=== PATIENT | male | born 1960 | race Caucasian/White ===

== ENCOUNTER 2018-02-09 17:16 | Observation (INO) ==
[2018-02-09] MEDS ORDERED: Ipratropium/Albuterol Neb 3 ML IH ONE ×2 (17:47→18:19)
--- NOTE | 2018-02-09 17:55 | Emergency Department Note ---
Disposition Clinical Impression: Hypokalemia Pneumonia Qualifiers: Pneumonia type: due to unspecified organism Laterality: bilateral Lung location : lower lobe of lung Qualified Code(s): J18.1 - Lobar pneumonia, unspecified organism Disposition: Home, Self-Care Condition: Good URI/Sore Throat HPI - General Chief Complaint: ED Upper Respiratory Infection Stated Complaint: Not feeling well, fever, cough Time Seen by Provider: 02/09/18 17:51 Source: patient, family Mode of arrival: private vehicle Limitations: no limitations, altered mental status Nursing Notes Reviewed: Yes Vital Signs Reviewed: Yes - History of Present Illness HPI Narrative: Patient presents to the ED on referral from urgent care for shortness of breath and wheezing. Chest x-ray at urgent care showed a right-sided pneumonia her nurse practitioner who evaluated him. He received 1 DuoNeb and, 8 mg of Decadron and a gram of Rocephin and continued to be short of breath and wheezing. They state his room air oxygen saturation is 93% and improved to 94% on 2 L he was still tachypnea. Patient was afebrile at urgent care. He reported that he had not been eating well and had increasing shortness of breath for a week. Patient also had a witnessed fall in the parking lot at urgent care on his way and due to a chronic unsteady gait and has an abrasion on his right cheek. On arrival here patient's oxygen saturations 91% on room air. He was placed on 2 L of oxygen. He states he has had a productive cough of yellow sputum. Denies any sneezing, sore throat, nasal congestion or rhinorrhea. He reports a fever of 101 two days ago. He took Vicks DayQuil today. Denies any chest pain, nausea, vomiting or constipation. No lower extremity edema or orthopnea.He has had 2 episodes of diarrhea today. He has a history of medical brain injury in 19 ED to stroke in 2016. His only medications are a statin and aspirin. Recent audibly wheezing on arrival. - Related Data Home Medications Medication Instructions Recorded Confirmed Atorvastatin [Lipitor] 40 mg PO DAILY 02/09/18 02/09/18 Previous Rx's Medication Instructions Recorded Aspirin 81 mg PO DAILY tab.chew 07/04/16 Allergies Allergy/AdvReac Type Severity Reaction Status Date / Time No Known Allergies Allergy Verified 04/14/18 17:17 Constitutional: Reports: fever. Denies: chills, weakness, weight change Eyes: Denies: eye pain, eye discharge, vision change ENT ED: Denies: ear pain, throat pain, dental pain, hearing loss, epistaxis, congestion, dysphagia Cardiovascular: Denies: chest pain, palpitations, dyspnea on exertion, edema, syncope Respiratory: Reports: cough, dyspnea, wheezes, sputum production. Denies: hemoptysis, stridor Gastrointestinal: Denies: abdominal pain, nausea, vomiting, diarrhea, constipation, hematemesis, melena, hematochezia Genitourinary: Denies: urgency, dysuria, frequency, hematuria Musculoskeletal: Denies: back pain, neck pain, arthralgia, myalgia Integumentary: Denies: rash, abrasion, lesions Neurological: Denies: headache, weakness, numbness, paresthesias, confusion, abnormal gait, vertigo Psychiatric: Denies: anxiety, depression, suicidal thoughts, homicidal thoughts , auditory hallucinations, visual hallucinations Endocrine: Denies: fatigue Hematological/Lymphatic: Denies: easy bleeding, easy bruising Allergic/Immunologic: Denies: facial swelling, urticaria URI PMH - Past Medical History Medical history: Reports: CVA, hyperlipidemia Surgical history: Reports: other Psychiatric history: Reports: other - Social History Smoking Status: Never smoker Alcohol use: Reports: none Drug use: Reports: none Physical Exam - General Limitations: no limitations General appearance: alert, in no apparent distress - Head Head exam: atraumatic, normocephalic, normal inspection - Eye Eye exam: Present: normal appearance, PERRL, EOMI - ENT ENT exam: normal exam, normal oropharynx, mucous membranes moist, TM's normal bilaterally, normal external ear exam - Neck Neck exam: Present: normal inspection, full ROM, trachea midline. Absent: lymphadenopathy - Chest Chest inspection: Present: normal inspection, symmetric chest wall rise - Respiratory Respiratory exam: Absent: respiratory distress, accessory muscle use - Expanded Respiratory Exam Location: wheezes: Left, Right, Upper, Lower (insp/exp) - Cardiovascular Cardiovascular exam: Present: regular rate, normal rhythm, normal heart sounds - Abdominal Exam Abdominal exam: Present: soft, Non-Tender. Absent: tenderness, distention, guarding, rebound, rigidity - Extremities Exam Extremities exam: Present: normal inspection, full ROM. Absent: tenderness, pedal edema - Back Exam Back exam: Present: normal inspection, full ROM. Absent: tenderness - Neurological Exam Neurological exam: Present: alert, oriented X3 - Psychiatric Psychiatric exam: Present: normal affect, normal mood - Skin Skin exam: Present: warm, dry, intact, normal color Course Course Narrative: Patient presents to the ED with 1 week of worsening shortness of breath, decreased appetite, fever and wheezing. He has wheezing on arrival. Chest x- ray from outside facility is not available for review so will repeat here in addition to lab work. We will give an additional DuoNeb and reassessed. Concern is for bronchitis versus pneumonia. Low suspicion for cardiac pathology. - Reevaluation(s) Reevaluation #1: Single-view chest x-ray showed poor lung volumes but no definite infiltrate. Will obtain 2 view for further evaluation given report of right-sided pneumonia on outside chest x-ray which is not available for review. CBC shows a low white count, possibly indicating viral infection. BMP is notable for a potassium of 2.9. Lactic acid is normal at 1.6. Awaiting repeat chest x-ray but there is still high suspicion for pneumonia. Patient's wheezing has improved but is present and oxygen saturations remain in the low 90s on O2. Time: 18:55 Reevaluation #2: Two-view chest x-ray shows possible bibasilar pneumonia. Patient has been started on antibiotics. He is also being given potassium supplements. Discussed with patient and family the need for admission and they are in agreement. I spoken with hospice on-call, Dr. Aguayo who has agreed to admit the patient. Vital Signs Temperature 99.6 F 02/09/18 17:18 Pulse Rate 78 02/09/18 17:18 Respiratory Rate 20 02/09/18 17:18 Blood Pressure 161/82 02/09/18 17:18 O2 Sat by Pulse Oximetry 91 02/09/18 17:18 Temperature 98.5 F 02/10/18 03:56 Pulse Rate 72 02/10/18 03:56 Respiratory Rate 18 02/10/18 05:58 Blood Pressure 111/70 02/10/18 03:56 O2 Sat by Pulse Oximetry 90 02/10/18 05:58 Oxygen Delivery Oxygen Delivery Nasal Cannula Upper Respiratory Infection - Differential Diagnosis Differential Diagnosis: Likely: upper respiratory infection, other viral infection, bronchitis, pneumonia - Medical Records Medical records reviewed: Yes I reviewed the patient's medical records. - Lab Data Lab results reviewed: Yes I reviewed the patient's lab results. Result diagrams: 02/09/18 17:55 02/09/18 17:55 Lab Results 02/09/18 02/09/18 02/09/18 Range/Units 17:55 17:55 17:55 WBC 2.7 L (4.3-11.1) K/mcL RBC 4.95 (4.19-5.50) M/mcL Hgb 14.7 (12.9-16.9) g/dL Hct 42.5 (37.5-50.1) % MCV 85.9 (83.0-100.0) fL MCH 29.7 (28.0-33.3) pg MCHC 34.6 (31.6-35.5) g/dL RDW 12.3 (11.5-14.5) % Plt Count 118 L (140-400) K/mcL MPV 10.5 (9.4-12.4) fL Immature Gran % 0.0 (0-4) % Seg Neutrophils % 72.2 % Lymphocytes % 16.1 % Monocytes % 10.2 % Eosinophils % 1.1 % Basophils % 0.4 % Neutrophils # 2.0 (1.6-8.9) K/mcL Lymphocytes # 0.4 L (0.6-4.6) K/mcL Monocytes # 0.3 (0.0-1.3) K/mcL Eosinophils # 0.0 (0.0-0.6) K/mcL Basophils # 0.0 (0.0-0.2) K/mcL Sodium 137 (136-145) mEq/L Potassium 2.9 L (3.5-5.1) mEq/L Chloride 104 (98-107) mEq/L Carbon Dioxide 27 (23-29) mEq/L BUN 19 (6-20) mg/dL Creatinine 1.06 (0.70-1.30) mg/dL Est GFR ( Amer) > 60 (> 60) Est GFR (Non-Af Amer) > 60 (> 60) BUN/Creatinine Ratio 18 (6-26) Glucose 143 H (70-105) mg/dL Calculated Osmolality 289 (280-300) Lactic Acid 1.6 (0.5-2.2) mmol/L Calcium 8.2 L (8.6-10.3) mg/dL Phosphorus (2.7-4.5) mg/dL Magnesium (1.6-2.6) mg/dL 02/09/18 Range/Units 17:55 WBC (4.3-11.1) K/mcL RBC (4.19-5.50) M/mcL Hgb (12.9-16.9) g/dL Hct (37.5-50.1) % MCV (83.0-100.0) fL MCH (28.0-33.3) pg MCHC (31.6-35.5) g/dL RDW (11.5-14.5) % Plt Count (140-400) K/mcL MPV (9.4-12.4) fL Immature Gran % (0-4) % Seg Neutrophils % % Lymphocytes % % Monocytes % % Eosinophils % % Basophils % % Neutrophils # (1.6-8.9) K/mcL Lymphocytes # (0.6-4.6) K/mcL Monocytes # (0.0-1.3) K/mcL Eosinophils # (0.0-0.6) K/mcL Basophils # (0.0-0.2) K/mcL Sodium (136-145) mEq/L Potassium (3.5-5.1) mEq/L Chloride (98-107) mEq/L Carbon Dioxide (23-29) mEq/L BUN (6-20) mg/dL Creatinine (0.70-1.30) mg/dL Est GFR ( Amer) (> 60) Est GFR (Non-Af Amer) (> 60) BUN/Creatinine Ratio (6-26) Glucose (70-105) mg/dL Calculated Osmolality (280-300) Lactic Acid (0.5-2.2) mmol/L Calcium (8.6-10.3) mg/dL Phosphorus 2.3 L (2.7-4.5) mg/dL Magnesium 2.0 (1.6-2.6) mg/dL - Radiology Data Radiology results reviewed: Yes I reviewed the patient's radiology results. ITS Impressions Chest X-Ray 02/09/18 17:41 IMPRESSION: Limited examination secondary to low lung volumes. Repeat PA and lateral chest is recommended for better evaluation. No definite acute abnormality detected, but the retro-diaphragmatic regions are not well seen. D/ / Daniel Jaeger MD / Daniel Jaeger MD Interpreting Provider: Daniel Jaeger MD Chest X-Ray 02/09/18 18:44 IMPRESSION: 1. Hypoventilatory chest with consolidation identified within the posterior lung bases on the lateral view concerning for pneumonia in the appropriate clinical setting. D/ / Clark Burns MD / Clark Burns MD Interpreting Provider: Clark Burns MD
[2018-02-09 18:04] LABS: Basophils % 0.4 %; Eosinophils % 1.1 %; Hematocrit 42.5 % (37.5-50.1); Hemoglobin 14.7 g/dL (12.9-16.9); Lymphocytes # 0.4 K/mcL (0.6-4.6); Lymphocytes % 16.1 %; Mean Corpuscular HGB Conc 34.6 g/dL (31.6-35.5); Mean Corpuscular Hemoglobin 29.7 pg (28.0-33.3); Mean Corpuscular Volume 85.9 fL (83.0-100.0); Mean Platelet Volume 10.5 fL (9.4-12.4); Monocytes # 0.3 K/mcL (0.0-1.3); Monocytes % 10.2 %; Platelet Count 118 K/mcL (140-400); Red Blood Count 4.95 M/mcL (4.19-5.50); Red Cell Distribution Width 12.3 % (11.5-14.5); Segmented Neutrophils % 72.2 %
[2018-02-09 18:23] LABS: BUN/Creatinine Ratio 18 (6-26); Blood Urea Nitrogen 19 mg/dL (6-20); Calcium 8.2 mg/dL (8.6-10.3); Carbon Dioxide 27 mEq/L (23-29); Chloride 104 mEq/L (98-107); Glucose 143 mg/dL (70-105); Osmolality,Calculated 289 (280-300); Potassium 2.9 mEq/L (3.5-5.1); Sodium 137 mEq/L (136-145); eGFR For African Americans > 60 (> 60); eGFR For Non-African Americans > 60 (> 60)
[2018-02-09] MEDS ORDERED: Potassium Chloride Elixir 20 MEQ/15 ML UDC PO ONE (18:43)
[2018-02-09] MEDS ORDERED: Azithromycin 500 MG in D5% in Water 250 ML IVPB ONE (18:43)
[2018-02-09] MEDS ORDERED: 0.9 % Sodium Chloride 1,000 ML IVC ONE (18:49)
[2018-02-09 19:29] LABS: Phosphorous 2.3 mg/dL (2.7-4.5)
[2018-02-09] MEDS ORDERED: Naloxone 0.4 MG/ML INJ IVP PRN (20:10)
[2018-02-09] MEDS: Ipratropium/Albuterol Neb 3 ML IH SCH (21:43)
[2018-02-10] MEDS: Ipratropium/Albuterol Neb 3 ML IH SCH ×6 (02:16→21:53)
[2018-02-10 07:35] LABS: BUN/Creatinine Ratio 15 (6-26); Blood Urea Nitrogen 16 mg/dL (6-20); Calcium 8.1 mg/dL (8.6-10.3); Carbon Dioxide 24 mEq/L (23-29); Chloride 108 mEq/L (98-107); Glucose 233 mg/dL (70-105); Osmolality,Calculated 301 (280-300); Potassium 3.3 mEq/L (3.5-5.1); Sodium 141 mEq/L (136-145); eGFR For African Americans > 60 (> 60); eGFR For Non-African Americans > 60 (> 60)
[2018-02-10 10:25] LABS: Magnesium 1.8 mg/dL (1.6-2.6); Potassium 3.3 mEq/L (3.5-5.1)
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
[2018-02-11] MEDS: Ipratropium/Albuterol Neb 3 ML IH SCH ×3 (01:51→09:53)
[2018-02-11 05:52] VITALS: BP 112/72
[2018-02-11 06:25] LABS: Hematocrit 36.4 % (37.5-50.1); Hemoglobin 12.6 g/dL (12.9-16.9); Mean Corpuscular HGB Conc 34.6 g/dL (31.6-35.5); Mean Corpuscular Hemoglobin 29.9 pg (28.0-33.3); Mean Corpuscular Volume 86.5 fL (83.0-100.0); Mean Platelet Volume 11.4 fL (9.4-12.4); Monocytes # 0.5 K/mcL (0.0-1.3); Platelet Count 113 K/mcL (140-400); Red Blood Count 4.21 M/mcL (4.19-5.50); Red Cell Distribution Width 12.4 % (11.5-14.5)
[2018-02-11 06:52] LABS: Alanine Aminotransferase 44 Units/L (7-52); Albumin/Globulin Ratio 1.3 (1.1-2.2); Alkaline Phosphatase 63 Units/L (34-104); Aspartate Amino Transferase 26 Units/L (13-39); BUN/Creatinine Ratio 13 (6-26); Bilirubin,Total 0.4 mg/dL (0.3-1.0); Blood Urea Nitrogen 12 mg/dL (6-20); Calcium 7.9 mg/dL (8.6-10.3); Carbon Dioxide 27 mEq/L (23-29); Chloride 109 mEq/L (98-107); Globulin 2.3 g/dL (2.4-3.5); Glucose 103 mg/dL (70-105); Osmolality,Calculated 294 (280-300); Sodium 142 mEq/L (136-145); Total Protein 5.3 g/dL (6.4-8.9); eGFR For African Americans > 60 (> 60); eGFR For Non-African Americans > 60 (> 60)
[2018-02-11 07:30] LABS: Lymphocytes # 1.3 K/mcL (0.6-4.6); Neutrophils # 3.2 K/mcL (1.6-8.9); Platelet Estimate Decreased (Normal); Reactive Lymphocytes Present (Not Present)
--- NOTE | 2018-02-11 09:36 | Discharge Summary ---
Date of Encounter: 02/11/18 Time of Encounter: 09:25 - Discharge Diagnosis (1) Pneumonia Priority: Primary Status: Acute Qualifiers: Pneumonia type: due to unspecified organism Laterality: bilateral Lung location: lower lobe of lung Qualified Code(s): J18.1 - Lobar pneumonia, unspecified organism (2) Hypophosphatemia Priority: Secondary Status: Acute (3) Hypokalemia Priority: Secondary Status: Acute (4) Diarrhea Priority: Secondary Status: Acute Qualifiers: Diarrhea type: unspecified type Qualified Code(s): R19.7 - Diarrhea, unspecified Hospital course: Mr. Messina is a 57 year old male who was sent from a local urgent care to the emergency room after he presented there with 3 day history of dyspnea, fever, and cough productive of green and yellow sputum. Reports he has had diarrhea for at least one week with brown watery stools. He was evaluated in emergency room and found to have hypokalemia and leukopenia. He was admitted to [facility] floor for ongoing care needs. Initial orders written by the emergency room physician. I saw him on February 10 and performed a history and physical. He was started on Rocephin and Zithromax with lactobacillus for by basilar infiltrates. WBC normalized to 5.0 by the following day with less left shift seen. He felt clinically improved when I saw him on February 11 and stable for discharge home. He reported his watery diarrhea had resolved. He will continue with antibiotic and probiotic for 3 additional days after discharge. He will continue supplemental potassium for 3 days after discharge. He will follow with his PCP within 1 week. - Time Spent with Patient Total time spent providing and/or coordinating discharge services: - Discharge Medications Prescriptions: Cefuroxime PO [Ceftin] 500 mg PO Q12HR #6 tablet Azithromycin [Zithromax] 250 mg PO DAILY #3 tablet Lactobacillus [Culturelle] 1 each PO BID #6 cap.sprink Potassium Chloride 10 meq PO BIDWM #6 tab.er.prt Home Medications: Aspirin 81 mg PO DAILY tab.chew 07/04/16 [Rx] Atorvastatin [Lipitor] 40 mg PO DAILY 02/09/18 [History] Azithromycin [Zithromax] 250 mg PO DAILY #3 tablet 02/11/18 [Rx] Cefuroxime PO [Ceftin] 500 mg PO Q12HR #6 tablet 02/11/18 [Rx] Lactobacillus [Culturelle] 1 each PO BID #6 cap.sprink 02/11/18 [Rx] Potassium Chloride 10 meq PO BIDWM #6 tab.er.prt 02/11/18 [Rx] Allergies/Adverse Reactions: 3 Allergy/AdvReac Type Severity Reaction Status Date / Time No Known Allergies Allergy Verified 02/09/18 17:17 Date of admission: 02/09/18 20:23 Primary care physician: Densie Phipps - Constitutional Vitals: Temp Pulse Resp BP Pulse Ox 98 F 68 22 112/72 94 02/11/18 05:51 02/11/18 05:51 02/11/18 06:15 02/11/18 05:51 02/11/18 06:15 - Patient Status Disposition: Home, Self-Care Condition: Good Overall status at discharge: patient is progressing back to baseline - Discharge Instructions Follow Up With: Denise Phipps, STORE SALES LEADER [Primary Care Provider] - 1 week - Diet and Activity Activity: resume usual activities as tolerated Diet: advance to your usual diet - VTE Reasons for not Prescribing Prophylaxis: Treatment not Indicated - Low risk for VTE
--- NOTE | 2018-02-11 11:07 | Physician Discharge Referral ---
Home Health/Hosp Referral Info Transfer to: Home Health Attending Provider: Olivier Provider in Charge Post Discharge: PCP (Denise Phipps CNP) - Diagnosis (1) Pneumonia Priority: Primary Status: Acute (2) Hypophosphatemia Priority: Secondary Status: Acute (3) Hypokalemia Priority: Secondary Status: Acute (4) Diarrhea Priority: Secondary Status: Acute - Respiratory Orders Smoking Cessation: Smoking cessation has been advised. For more information, call the [place] Tobacco Quit Line at 1-363-FXGZ-NOW. - Diet/Nutrition Diet/Nutrition Orders: Regular - Activity Activity Orders: Walker - Services Needed Following services are medically necessary services: Nursing, Home Health Aide, Physical Therapy, Occupational Therapy - Transfer Medications Prescriptions: Cefuroxime PO [Ceftin] 500 mg PO Q12HR #6 tablet Azithromycin [Zithromax] 250 mg PO DAILY #3 tablet Lactobacillus [Culturelle] 1 each PO BID #6 cap.sprink Potassium Chloride 10 meq PO BIDWM #6 tab.er.prt Home Medications: Aspirin 81 mg PO DAILY tab.chew 07/04/16 [Rx] Atorvastatin [Lipitor] 40 mg PO DAILY 02/09/18 [History] Azithromycin [Zithromax] 250 mg PO DAILY #3 tablet 02/11/18 [Rx] Cefuroxime PO [Ceftin] 500 mg PO Q12HR #6 tablet 02/11/18 [Rx] Lactobacillus [Culturelle] 1 each PO BID #6 cap.sprink 02/11/18 [Rx] Potassium Chloride 10 meq PO BIDWM #6 tab.er.prt 02/11/18 [Rx] Allergies/Adverse Reactions: 3 Allergy/AdvReac Type Severity Reaction Status Date / Time No Known Allergies Allergy Verified 02/09/18 17:17 Certification: Further, I certify that my clinical findings support that this patient is homebound (i.e. absences from home require considerable and taxing effort and are for medical reasons or rastafari services or infrequently or short duration when for other reasons) because: Homebound Reason: Leaving home requires considerable and taxing effort due to condition (Impaired walking ability secondary to CVA) Attestation: My signature below is to certify that this patient is under my care and that I, or nurse practitioner, or a physician's assistant administrator working with me, has a face-to -face encounter with this patient.
== END 2018-02-11 11:30 | disposition home health service (06) ==
LOC: EMEROOPIK 17:16 → INPPIK 17:16
PROVIDERS: ADMIT Internal Medicine; ATTEND Internal Medicine